=== PATIENT | male | born 1990 | race Caucasian/White ===

== ENCOUNTER 2017-08-12 09:51 | Emergency (ER) | payer OTHER ==
--- NOTE | 2017-08-12 11:11 | XRAY Report ---
EXAM: RIGHT ANKLE RADIOGRAPHY EXAM DATE: 08/12/2017 11:02 AM. CLINICAL HISTORY: Inversion injury yesterday while playing soccer. Swelling, bruising, and pain aroun d the lateral malleolus. COMPARISON: None. TECHNIQUE: 3 views. FINDINGS: Bones: Normal. No fractures or bone lesions. Joints: Normal. No effusion. No subluxations. The ankle mortise is normally aligned. Soft Tissues: There is mild soft tissue swelling around the lateral malleolus. IMPRESSION: 1. No fracture or other acute osseous abnormality. 2. Mild soft tissue swelling around the lateral malleolus. [facility] Referring Provider Line: [phone] SITE ID: [id number]
--- NOTE | 2017-08-12 11:11 | XRAY Preliminary Report ---
Exam: XR ANKLE 3 VIEW RT IMPRESSION: 1. No fracture or other acute osseous abnormality. 2. Mild soft tissue swelling around the lateral malleolus. [facility] SITE ID: [id number]
[2017-08-12] MEDS ORDERED: IBUPROFEN 400 MG TABLET PO STA (11:30)
--- NOTE | 2017-08-12 11:30 | ED Physician Documentation ---
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 pain lat > medial and bruising able to bear some wt Review of Systems Musculoskeletal: reports: Pain with weight bearing PD PAST MEDICAL HISTORY - Past Medical History Past Medical History: No - Past Surgical History Past Surgical History: Yes General: Hiatal hernia repair - Present Medications Home Medications: Ambulatory Orders Medication Instructions Recorded Confirmed No Known Home Medications [No 08/12/17 08/12/17 Known Home Medications] - Allergies Allergies/Adverse Reactions: Allergies Allergy/AdvReac Type Severity Reaction Status Date / Time No Known Drug Allergies Allergy Verified 08/12/17 10:37 - Social History Does the pt smoke?: No Smoking Status: Never smoker Does the pt drink ETOH?: Yes Does the pt have substance abuse?: No - Immunizations Immunizations are current?: Yes - POLST Patient has POLST: No PD ED PE NORMAL - Vitals Vital signs reviewed: Yes - Extremities Extremities: Other (RLE - knee NT, prox tib fib NT, suzan mall TTP, suzan ST TTP, bruising suzan, no 5th MT or midfoot pain, no laxity, MSV intact) Results - Vitals Vitals: Vital Signs - 24 hr 08/12/17 10:38 Temperature 37.3 C Heart Rate 62 Respiratory 20 Rate Blood Pressure 133/74 H O2 Saturation 100 Oxygen O2 Source Room air - Rads (name of study) ankle Radiology: See rad report (neg) Departure - Departure Disposition: 01 Home, Self Care Clinical Impression: Ankle sprain Qualifiers: Encounter type: initial encounter Involved ligament of ankle: unspecified ligament Laterality: right Qualified Code(s): S93.401A - Sprain of unspecified ligament of right ankle, initial encounter Condition: Good Instructions: ED Sprain Ankle W X Ray Comments: The xray shows no fracture Recommend using the crutches and non weight bearing for at least 3 days Then may advance activity as tolerated Ice and GIOVANNY and elevation to decrease swelling Motrin as needed for the pain Recommend physical therapy to help the ligaments heal properly - this should be available through [facility] If still painful to bear weight in 2 weeks, please follow up with your PMD for a recheck and consideration of further imaging Forms: Activity restrictions
[2017-08-12 11:52] VITALS: BP 113/81
== END 2017-08-12 11:54 | disposition home or self-care (01) ==
LOC: ED 09:51
DX: S93.401A Sprain of unspecified ligament of right ankle, initial encounter (principal); X50.9XXA Other and unspecified overexertion or strenuous movements or postures, initial encounter; Y93.66 Activity, soccer
CPT/HCPCS: 73610; 99282; 99283; A9270

== ENCOUNTER 2021-10-03 13:25 | Outpatient (CLI) | payer BC, OTHER ==
--- NOTE | 2021-10-03 16:33 | XRAY Report ---
PROCEDURE: Thoracic Spine 2 View INDICATIONS: LOWER BACK PAIN TECHNIQUE: 2 views of the thoracic spine were acquired. COMPARISON: None. FINDINGS: Bones: No fractures or dislocations. No suspicious bony lesions. 12 pairs of ribs are noted, and a ppear intact where visualized. Mild disc space is narrowing at T11-12 with small anterior osteophyte Soft tissues: No paravertebral stripe thickening. 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
--- NOTE | 2021-10-03 16:34 | XRAY Report ---
PROCEDURE: Lumbar Spine 2 View INDICATIONS: LOWER BACK PAIN TECHNIQUE: 2 views of the lumbar spine were acquired. COMPARISON: None. FINDINGS: Bones: 5 [id number] vertebrae are present. There is normal bony alignment. No vertebral body compression fractures. No suspicious bony lesions. Soft tissues: Overlying bowel gas pattern is normal. No suspicious soft tissue calcifications. IMPRESSION: Normal lumbar spine radiographs Reviewed by: Wesly Buenrostro MD on 10/03/2021 3:33 PM [facility] Approved by: Wesly Buenrostro MD on 10/03/2021 3:33 PM [facility] Station ID: [id number]
== END 2021-10-03 13:26 | disposition home or self-care (01) ==
LOC: DI 13:25
PROVIDERS: ATTEND Naturopath
DX: M54.50 Low back pain, unspecified (principal); M47.814 Spondylosis without myelopathy or radiculopathy, thoracic region; M48.04 Spinal stenosis, thoracic region